=== PATIENT | female | born 1965 | race Caucasian/White ===

== ENCOUNTER 2016-08-29 17:34 | Emergency (ER) | payer OTHER ==
--- NOTE | 2016-08-29 22:35 | DIAGNOSTIC IMAGING REPORT ---
PROCEDURE: CT HEAD WITHOUT CONTRAST INDICATION: MENTAL STATUS CHANGE TECHNIQUE: Axial CT images were acquired through the head. Coronal and sagittal reformations were created. COMPARISON: None. FINDINGS: No intracranial hemorrhage or extraaxial fluid collections. Ventricles are normal in size, shape and position. There is no mass, mass effect or midline shift. The crawford-white matter differentiation is normal. There is no edema. The calvarium is intact. Small left frontal soft tissue contusion. Maxillary sinuses are hypoplastic and there have been the inferior turbinate reductions and right maxillary antral windows. No fluid in the sinuses or mastoids. IMPRESSION: 1. No CT evidence of acute intracranial process. 2. Small left frontal contusion without underlying fracture. 3. Findings discussed with Jennifer Johnson at [address] scans at this facility use dose modulation, iterative reconstruction, and/or weight-based dosing when appropriate to reduce radiation dose to as low as reasonably achievable.
--- NOTE | 2016-08-30 09:54 | ED NURSING NOTES ---
Clinical Report - [facility] [place] [address] 08/29/2016 17:35 Patient: MARIETTA MARKHAM TRIAGE Triage time 17:40. Acuity: LEVEL 2. Chief Complaint: DRUG OVERDOSE. BUDDY COMA SCORE: [place] Coma Scale: 10- eyes open to pain (2); best verbal response- inappropriate speech (3); best motor response- localizes to pain (5). --18:01 Shaq Ruelas R.N. 17:44 08/29/16. HR: 81. RR: 14. O2 saturation: 93%. --18:01 Shaq Ruelas R.N. Weight: 54.4 kg estimated. Height/Length: 63 inches Estimated. BMI: 21.2. --17:44 Shaq Ruelas R.N. Medications Unknown. --17:57 Shaq Ruelas R.N. Allergies None. Shellfish-derived Products. Tramadol. --17:57 Shaq Ruelas R.N. History Historian: EMS. Primary physician (unknown). ( pt responds "nothing" to all triage questions. EMS called by elderly mother for patient's anxiety. Seen by EMS previous for meth use. Pt unable to comprehend triage questions. Pt goes from lethargic and not responding to verbal/painful stimuli, to crawling off the bed and yelling.). This occurred just prior to arrival. Treatment MEDICAL RECEPTIONIST BILLER: (narcan x1 from EMS). --18:01 Shaq Ruelas R.N. PROBLEMS: Contusion. Fall. Arthritis. Dental Pain. Dental Caries. Depression. Constipation. Anxiety Reaction. Hypokalemia. Gastritis. Pancreatitis. Abdominal Pain. Gastroesophageal Reflux. Gastroesophageal Reflux Disease. Immunizations. LNMP - Last Normal Menstrual Period. --17:59 Shaq Ruelas R.N. ADDITIONAL SURGERIES: Cholecystectomy. . Tonsillectomy. --17:59 Shaq Ruelas R.N. Interventions ID band on patient. To treatment room. --18:01 Shaq Ruelas R.N. PHYSICAL ASSESSMENT Ambulatory to room. GENERAL / NEURO / PSYCH: Patient's mood/affect appears abnormal. Gag reflex present. She appears to have altered thought processes. RESPIRATORY: Respirations not labored. CVS: Capillary refill less than 2 seconds. GI / : Abdomen soft and nontender. SKIN: Skin intact. Skin is warm and dry. Skin color is within normal limits. --18:47 Marivel Valdez R.N. 07:41 08/30/16. GENERAL / NEURO / PSYCH: Buddy Coma Scale: 14- eyes open spontaneously (4); best verbal response- disoriented (4); best motor response- obeys commands (6). The patient is disoriented to situation. Altered mental status: confused. Abnormal verbal response. ( Pt awakens easily, pt was sleeping, pt confused to situation, does not know where she is at. Pt is sleeping, not impulsive at this time. Alert and oriented x2, will monitor close. DMHP at bedside.). --07:41 Yair Vick R.N. NURSING PROGRESS NOTES Head of bed elevated. Two patient identifiers checked. Call light placed in reach. Side rails up x 2. Bed placed in lowest position. Brakes of bed on. Patient ready for evaluation. --18:47 Marivel Valdez R.N. 18:37 08/29/2016 Site #1 started via IV forearm with an 22g angiocath, with aseptic technique and good blood return; one attempt. Blood drawn: rainbow set. Labeled in the presence of the patient and sent to the lab. Saline lock flushed with 10 mL saline. --19:02 Marivel Valdez R.N. 18:38 08/29/2016 Started bag #1 1000 mL IV Fluids IV NS (Saline); at 1000 mL/hr over 1 hour(s) via site #1 via IV pump. Allergies verified and confirmed 5 rights. IV patency established. IV site checked: no pain, redness, or swelling. IV flushed thoroughly pre- and post-medication administration. --19:03 Marivel Valdez R.N. 19:13 08/29/2016 Started 20 meq of KCL (Potassium Chloride) IVPB in bag #1 100 mL; at 50 mL/hr over 2 hour(s) via site #1 via IV pump. Allergies verified and confirmed 5 rights. IV patency established. IV site checked: no pain, redness, or swelling. IV flushed thoroughly pre- and post-medication administration. --19:13 Marivel Valdez R.N. Critical value relayed to ED by alfredito. Critical value received by marivel. K: 2.9. Critical value read back. Verified lab result and patient ID. PA notifed of critical value. Orders were received. --19:15 Marivel Valdez R.N. 19:26 08/29/16. BP: 106/60. HR: 57. RR: 16. O2 saturation: 99% on room air. --19:27 Marivel Valdez R.N. <<STRICKEN ENTRY-- 19:38 08/29/2016 IV Fluids IV NS Bag Change: bag #1 infused. Total amount infused: 1000 at 1000 mL/hr via IV pump. Confirmed 5 rights. IV patency established. IV site checked: no pain, redness, or swelling. IV flushed thoroughly. --20:47 Marivel Valdez R.N. --END STRIKE>> Correction. --20:48 Marivel Valdez R.N. 19:38 08/29/2016 IV Fluids IV NS Bag Change: bag #1 infused. Total amount infused: 1000. STARTED bag #2 (1000 mL) at 1000 mL/hr via IV pump. Confirmed 5 rights. IV patency established. IV site checked: no pain, redness, or swelling. IV flushed thoroughly. --20:48 Marivel Valdez R.N. 18:30. In/out catheterization. Reason for indwelling catheter: patient's decreased level of consciousness. During procedure hand hygiene observed and sterile equipment and aseptic technique used. She tolerated procedure well (fem cath). --20:50 Marivel Valdez R.N. 20:00 08/29/16. BP: 119/80. HR: 94. RR: 22. O2 saturation: 98% on room air. 19:26 08/29/16. BP: 106/60. HR: 57. RR: 16. O2 saturation: 99% on room air. --20:50 Marivel Valdez R.N. ( Patient's arms repositioned, VS done. Responds to voice. continues to be trying to pull at the lines. Continues to be impulsive and leaning forward.). --21:02 Marivel Valdez R.N. ( 1847, late entry, patient impulsive and trying to pull away. Refuses to follow simple commands. Moans, and tries to lurch to side and the end of the bed. Unable to answer questions re meds, hx, surgs etc). --21:05 Marivel Valdez R.N. ( Patient incontinent of urine, of a large amount of urine. Linen changed and patient repositioned again.). --21:12 Marivel Valdez R.N. 21:23 08/29/2016 IV Fluids IV NS Discontinued: bag #2 infused. Total amount infused: 1000 mL. IV patency established. IV site checked: no pain, redness, or swelling. IV flushed thoroughly. --21:23 Marivel Valdez R.N. 21:23 08/29/2016 KCL IVPB Discontinued: bag #1 infused. Total amount infused: 100 mL. IV patency established. IV site checked: no pain, redness, or swelling. IV flushed thoroughly. --21:23 Marivel Valdez R.N. 21:54 08/29/2016 HALDOL (Haloperidol Lactate) IVP 3 mg given over 1 minute(s) via site #1. Allergies verified, confirmed 5 rights and sedative warning given to the patient. IV patency established. IV site checked: no pain, redness, or swelling. IV flushed thoroughly pre- and post-medication administration. IVP given by RN. --21:59 Marivel Valdez R.N. ( Transported to CT for scan of head, via bed. Patient assisted to the bed, attempting to follow commands.). --22:01 Marivel Valdez R.N. Patient returned from CT by stretcher with nurse and tech. ([id number]). --22:20 Marivel Valdez R.N. 22:00 08/29/16. BP: 104/47. HR: 65. RR: 20. O2 saturation: 97% on room air. Additional comments: Patient rouses to voice, yet unable to follow commands. 20:53 08/29/16. BP: 119/48. HR: 83. RR: 18. O2 saturation: 96% on room air. --22:23 Marivel Valdez R.N. ( Report received from Marivel CHOWDHURY. Pt was placed in a gown and given a warm blanket. Pt had urinated on her clothes. Restraints are on both wrist to keep the pt from falling out of bed. Pt is very impulsive, but is not violent. Pt will try and pull IV out and get out of bed. Pt is confused and response to verbal.). --22:29 Hieu Singer R.N. 22:46 08/29/2016 Narcan (Naloxone HCl) IVP 0.4 mg given over 1 minute(s) via site #1. Allergies verified and confirmed 5 rights. IV patency established. IV site checked: no pain, redness, or swelling. IV flushed thoroughly pre- and post-medication administration. IVP given by RN. --22:46 Hieu Singer R.N. 22:58 08/29/16. BP: 115/79. HR: 93. RR: 18. O2 saturation: 100%. Pain level now 0/10. --23:00 Hieu Singer R.N. gambling monitor, pulse oximeter and NIBP monitor placed on patient. ( Pt is awake after the narcan was given. Pt is laying in bed and moaning. Pt refuses to answer questions. Pt is in wrist restraints to keep her from falling out of bed.). --23:00 Hieu Singer R.N. Patient ID band checked for patient name and birthdate. Blood samples drawn from the left antecubital space by lab per protocol ; labeled in presence of the patient and sent to lab: rainbow set. --23:43 Nilay Moody R.N. ( MD HAIRSTON and RN went to assess the pt. Pt was on the monitor and continues to moan and not responding to commands.). --23:44 Hieu Singer R.N. ( Pt is moaning in bed and will not answer questions. Pt is in wrist restraints and is constantly moving around in bed. Pt was given pants, because she kicks off the warm blankets. Restraints are loose around the wrist with no signs of injury or too tight. Radial pulse is strong in both hands. Skin is warm on both hands. Cap refill is under 3 seconds.). --00:35 Hieu Singer R.N. ( Pt was asked if she was in pain, she stated she was not in pain then continued to moan and did not answer anymore questions. Pt is still on the monitor and wrist restraints. Restraints are secure and not too tight. Hands are warm to the touch with good cap refill.). --01:22 Hieu Singer R.N. 01:21 08/30/16. BP: 141/67. HR: 101. RR: 22. O2 saturation: 100%. Pain level now 0/10. --01:22 Hieu Singer R.N. ( [facility] was called for a DMHP and one will be sent for an evaluation. Pt is still laying in bed and moving constantly.). --02:00 Hieu Singer R.N. ( Pt was sat up in bed and her restraints were repositioned and checked. Pt stated she was not in pain, however she continues to moan and answer no other questions. Pt was given another warm blanket.). --02:05 Hieu Singer R.N. 02:07 08/30/16. BP: 133/72. HR: 104. RR: 18. O2 saturation: 98%. Pain level now 0/10. --02:07 Hieu Singer R.N. Point of care testing: performed by tech. Glucose: 96. Result shown to the RN. ( Pt blood sugar was checked and the restraints were checked. Pt was informed she needs to be evaluated by mental health.). --02:26 Hieu Singer R.N. 02:57 08/30/16. BP: 135/75. HR: 75. RR: 13. O2 saturation: 97%. Pain level now 0/10. --02:58 Hieu Singer R.N. ( Restraints have been removed and the pt is resting in bed with her eyes closed. Pt is no longer moaning and is snoring in bed.). --02:58 Hieu Singer R.N. ( Pt is resting in bed with eyes closed and snoring. Pt is on the monitor and the restraints are still off the pt.). --04:03 Hieu Singer R.N. 04:01 08/30/16. BP: 117/65. HR: 69. RR: 14. O2 saturation: 93%. Pain level now 0/10. --04:03 Hieu Singer R.N. 05:00 08/30/16. BP: 132/102. HR: 100. RR: 17. O2 saturation: 97%. Pain level now 0/10. --05:01 Hieu Singer R.N. ( Pt was snoring with her eyes closed and spo2 was in the upper 80's. Pt was woken up and the spo2 was increased to 96% on room air. Pt was placed on 2 liters nc and spo2 was 97%. Pt kept repeating "Ok" over and over.). --05:01 Hieu Singer R.N. ( Pt is now resting in bed with her eyes closed.). --05:01 Hieu Singer R.N. Oxygen administered by nasal cannula at 2 liters. --05:02 Hieu Singer R.N. ( pt is now more responsive, but is still confused. She is alert and oriented to self only.). --05:16 Hieu Singer R.N. ( DMHP is here. The pt is now more awake and responding to questions, but is still confused. Tashia CHOWDHURY has given the patient juice and offered a snack. Pt has been ordered breakfast. Pt is still moaning and continues to rock back and forth in bed.). --05:43 Hieu Singer R.N. ( DMHP is in the room talking to the pt.). --06:14 Hieu Singer R.N. ( Pt walked out of room 16 and was immediately taken back to the room. Pt had voided in the bed. Bedding and paper scrub pants and shirt was replaced on the pt. Pt was placed back in bed and was cooperative. Pt is still confused. Alert and oriented to self, but is able to follow commands.). BUDDY COMA SCORE: [place] Coma Scale: 14- eyes open spontaneously (4); best verbal response- disoriented (4); best motor response- obeys commands (6). --06:52 Hieu Singer R.N. 07:05 08/30/2016 Benadryl (DiphenhydrAMINE HCl) IVP 50 mg given over 2 minute(s) via site #1. Allergies verified, confirmed 5 rights and sedative warning given to the patient. IV patency established. IV site checked: no pain, redness, or swelling. IV flushed thoroughly pre- and post-medication administration. IVP given by RN. --07:05 Tashia Mendoza 07:09 08/30/16. Care transferred and report received. --07:09 Yair Vick R.N. 07:38 08/30/16. BP: 115/72. HR: 80. RR: 14. O2 saturation: 100%. Temp: 98.1 F (oral). Pain level now: 010. --07:39 Yair Vick R.N. 07:39 08/30/16. --07:39 Yair Vick R.N. 08:38 08/30/16. Patient informed about reason for wait and about plan of care. Patient waiting for admit bed. --08:38 Yair Vick R.N. 08:46 08/30/16. ( Since caring for patient ([id number]), pt has been in room 16, door open, pt is not restrained, camera for watching patient is on, pt is redirect able.). --08:46 Yair Vick R.N. 08:48 08/30/16. ( Pt is stating she is anxious, does not know why. Provided reassurance to patient. Pt denies being hungry.). --08:48 Yair Vick R.N. 09:30 08/30/16. ( Pt eating breakfast, pt states she is feeling anxious. Will continue to monitor. Trying to find psych bed for patient.). --09:30 Yair Vick R.N. 09:34 08/30/16. ( at bedside talking with patient to see if patient is medically cleared). --09:34 Yair Vick R.N. 09:39 08/30/2016 Potassium Chloride (Potassium Chloride ER) PO 20 meq given. Allergies verified and confirmed 5 rights. --09:39 Yair Vick R.N. 09:40 08/30/16. ( Pt denies suicidal ideation, homicidal ideation, pt states she is anxious, MD at bedside and patient will likely be discharged). --09:40 Yair Vick R.N. 09:42 08/30/16. GENERAL / NEURO / PSYCH: The patient reports anxiety. Alert. Oriented X 4. RESPIRATORY: No respiratory distress. GI / : No vomiting noted. SKIN: Skin is warm and dry. Skin color within normal limits. --09:42 Yair Vick R.N. DISPOSITION / DISCHARGE 09:43 08/30/2016 Site #1 removed upon discharge. Catheter intact. --09:53 Yair Vick R.N. Condition at departure: improved. The goals identified in the patient's plan of care were met. No learning barriers present. Discharge instructions provided and reviewed with the patient. Reviewed warnings. Reviewed medication(s). Treatments reviewed. Patient verbalized understanding. Written instructions provided in Irish. The patient was discharged by the physician. She was discharged home. She left the Emergency Department ambulatory and via taxi. ( Pt to be discharged to [facility] home). FALL RISK ASSESSMENT: Fall risk assessment completed. No fall risk identified. --09:54 Yair Vick R.N. 09:52 08/30/16. BP: 117/72. HR: 77. RR: 14. O2 saturation: 100% on room air. Temp: 98 F (oral). Pain level now: 0/10. --09:54 Yair Vick R.N. 10:05 08/30/16. ( Pt sent to waiting room, cab ETA is 15 minutes, pt is calm, dressed in paper scrubs, pt given slippers, pt understands where she is going and address.). --10:05 Yair Vick R.N. 10:05 08/30/16. Departure time: 10:05. --10:05 Yair Vick R.N. Locked/Released at 08/30/2016 10:06 by Yair Vick R.N.
--- NOTE | 2016-08-30 09:54 | ED CLINICAL REPORT ---
Clinical Report - Physicians/Mid Levels [facility] [address] [place] [address] 08/29/2016 17:35 Patient: MARIETTA MARKHAM Time Seen: 18:20 Aug 29 2016. Arrived- By ambulance. Historian- EMS personnel. History limited by altered mental status, poor cooperation and psychosis. Physical Exam limited by poor cooperation and psychosis. HISTORY OF PRESENT ILLNESS Chief Complaint: running around room at home "panic attack". This started today and is still present. It was abrupt in onset. (Change in behavior passing out at home. Given narcan intranasally , no improvement of sx. Reports meth use pt responds "nothing" to all triage questions. EMS called by elderly mother for patient's anxiety. Seen by EMS previous for meth use. Pt unable to comprehend triage questions. Pt goes from lethargic and not responding to verbal/painful stimuli, to crawling off the bed and yelling). Similar symptoms previously: REVIEW OF SYSTEMS Unobtainable due to patient's uncooperativeness. No nausea, diarrhea or blackouts. PAST HISTORY Problems: Contusion. Fall. Arthritis. Dental Pain. Dental Caries. Depression. Constipation. Anxiety Reaction. Hypokalemia. Gastritis. Pancreatitis. Abdominal Pain. Gastroesophageal Reflux. Gastroesophageal Reflux Disease. Immunizations. LNMP - Last Normal Menstrual Period. Additional Surgeries: Cholecystectomy. . Tonsillectomy. Medications: Unknown. Allergies: None. Shellfish-derived Products. Tramadol. SOCIAL HISTORY Smoker- current status unknown. Patient refuses to answer tobacco use questions. FAMILY HISTORY Unable to obtain family medical history (uncooperative). ADDITIONAL NOTES The nursing notes have been reviewed. PHYSICAL EXAM Vital Signs: 08/29/2016 17:44 HR: 81. RR: 14. O2 saturation: 93%. Appearance: Alert. Patient in mild distress. ENT: Nose normal. Pharynx normal. Neck: Normal inspection. No carotid bruit or lymphadenopathy. CVS: Normal heart rate and rhythm. Heart sounds normal. Respiratory: No respiratory distress. Breath sounds normal. No accessory muscle use or decreased air movement. Abdomen: No visible injury. No abdominal tenderness. Skin: (swelling and ecchymosis to front left head scalp). Neuro: Altered mental status. Eyes open spontaneously. Best verbal response: inappropriate speech. Best motor response: withdrawal. LABS, X-RAYS, AND EKG CT Head: (IMPRESSION: 1. No CT evidence of acute intracranial process. 2. Small left frontal contusion without underlying fracture. 3. Findings discussed with Jennifer Johnson at [address] scans at this facility use dose modulation, iterative reconstruction, and/or weight-based dosing when appropriate to reduce radiation dose to as low as reasonably achievable. Electronically Final signed by:Blanche Walters MD 08/29/2016 10:35:26 PM). Laboratory Tests: TSH: (SAURAV: 08/30/2016 01:50) ( [facility] 08/30/2016 03:17) Final results Test Result Flag Units (Reference) THYROID STIMULATING HORMONE 0.931 uIU/mL (0.34-3.74) BMP: (SAURAV: 08/30/2016 00:01) ( WvgRcvd 08/30/2016 00:43) Final results Test Result Flag Units (Reference) GLUCOSE 106 mg/dL (70-110) BUN 20 # H mg/dL (7-18) mg/dL CREATININE 0.7 mg/dL (0.6-1.3) Estimated GFR >60 mL/min Estimated GFR- >60 mL/min Note: Persistent reduction over 3 months in eGFR<60 mL/min/1.73 m2 defines CKD. Patients with eGFR values>=60 mL/min/1.73 m2 may also have CKD if evidence ofpersistent proteinuria. Additional information may be foundat www.kidney.org. SODIUM 142 mmol/L (136-145) POTASSIUM 3.9 # mmol/L (3.5-5.1) CHLORIDE 105 mmol/L (98-107) CARBON DIOXIDE 20 L mmol/L (21-32) CALCIUM 8.5 mg/dL (8.5-10.1) UA-Culture if indicated: (SAURAV: 08/29/2016 18:20) ( [facility] 08/29/2016 18:44) Final results Test Result Flag Units (Reference) URINE COLOR YELLOW URINE APPEARANCE SL CLOUDY URINE GLUCOSE NEGATIVE (NEGATIVE) URINE BILIRUBIN NEGATIVE (NEGATIVE) URINE KETONE 1+ (NEGATIVE) URINE SPECIFIC GRAVITY 1.015 (1.010-1.030) URINE PH 5.5 (5.0-8.0) URINE PROTEIN NEGATIVE (NEGATIVE) URINE UROBILINOGEN 0.2 EU/dL (0.2-1.0) URINE NITRITE NEGATIVE (NEGATIVE) URINE BLOOD TRACE-INTACT (NEGATIVE) URINE LEUK ESTERASE NEGATIVE (NEGATIVE) URINE RBC 1-3 rbc/hpf (0-1) URINE WBC 1-3 wbc/hpf (0-1) URINE EPITHELIAL CELLS 5-10 EPI/hpf (0-5) URINE BACTERIA FEW (1+) (NONE SEEN) URINE COMMENT CULT NOT INDICATED 1+ AMORPHOUSURINE CULTURES ARE SET-UP BASED ON THE FOLLOWING CRITERIA:POSITIVE NITRITEPOSITIVE LEUKOCYTE ESTERASEGREATER THAN 10 WHITE BLOOD CELLSMODERATE (2+) OR GREATER BACTERIA CBC w Diff: (SAURAV: 08/29/2016 18:20) ( MsgRcvd 08/29/2016 18:31) Final results Test Result Flag Units (Reference) WHITE BLOOD COUNT 13.8 H K/uL (4.5-11.5) RED BLOOD COUNT 3.24 L M/uL (4.00-5.20) HEMOGLOBIN 10.4 L gm/dL (12.0-16.0) HEMATOCRIT 31.3 L % (36.0-46.0) MEAN CELL VOLUME 97 fL (80-100) MEAN CORPUSCULAR HGB 32 pg (26-34) MEAN CORPUSCULAR HGB CONC 33 g/dL (31-37) RED CELL DISTRIBUTION WIDTH 13.5 % (11.6-14.8) PLATELET COUNT 252 K/uL (150-400) NEUTROPHIL % 82.0 H % (50-75) LYMPH % 12.5 L % (25-40) MONO % 5.0 % (3-14) EOSINOPHIL % 0.2 % (0-4) BASOPHIL % 0.3 % (0-2) Lipase: (SAURAV: 08/29/2016 23:40) ( MsgRcvd 08/30/2016 00:14) Final results Test Result Flag Units (Reference) LIPASE 34 L U/L (73-393) Ammonia Level: (SAURAV: 08/29/2016 23:40) ( [facility] 08/30/2016 00:12) Final results Test Result Flag Units (Reference) AMMONIA < 10 L umol/L (11-32) Acetaminophen Level: (SAURAV: 08/29/2016 18:20) ( [facility] 08/29/2016 19:12) Final results Test Result Flag Units (Reference) ACETAMINOPHEN < 2.0 L ug/mL (10-30) ETHYL ALCOHOL < 3.0 L mg/dL (3-10) Urine Drug Screen: (SAURAV: 08/29/2016 18:20) ( [facility] 08/29/2016 18:54) Final results Test Result Flag Units (Reference) AMPHETAMINE/METHAMPHETAMINE NEGATIVE (NEGATIVE) BARBITURATE NEGATIVE (NEGATIVE) BENZODIAZEPINE NEGATIVE (NEGATIVE) CANNABINOID NEGATIVE (NEGATIVE) COCAINE NEGATIVE (NEGATIVE) ECSTASY NEGATIVE (NEGATIVE) METHADONE NEGATIVE (NEGATIVE) OPIATE POSITIVE H (NEGATIVE) The urine drug screen is a qualitative screening test fordrug overdose and abuse. All screen results should beconsidered as presumptive.Drugs screened for are as follows:BenzodiazepinesCocaineAmphetamines/MetamphetaminesTHC (Tetrahydrocannabinol)OpiatesBarbituratesEcstasyMethadonePositive results are unconfirmed. For confirmation, notifythe lab for the specimen to be sent to the reference lab.All confirmations must be performed by a differentmethodology.The ingestion of natural herbal and plant productscontaining Ephedra/Ephedra metabolites can produce in urineone or more substances capable of cross reacting withamphetamine/methamphetamine immunoassays. These testsprovide a preliminary result only. A more specificalternative chemical method must be used to obtain aconfirmed analytical result. CMP: (SAURAV: 08/29/2016 18:20) ( [facility] 08/29/2016 19:02) Final results Test Result Flag Units (Reference) GLUCOSE 108 mg/dL (70-110) BUN 30 H mg/dL (7-18) CREATININE 0.9 mg/dL (0.6-1.3) Estimated GFR >60 mL/min Estimated GFR- >60 mL/min Note: Persistent reduction over 3 months in eGFR<60 mL/min/1.73 m2 defines CKD. Patients with eGFR values>=60 mL/min/1.73 m2 may also have CKD if evidence ofpersistent proteinuria. Additional information may be foundat www.kidney.org. SODIUM 135 L mmol/L (136-145) POTASSIUM 2.9 *L mmol/L (3.5-5.1) CRITICAL RESULTS CALLEDCalled to ALEXIA Vuong R.N. 08/29/16 1900Were 2 patient identifiers used? YWas the result read back? Y CHLORIDE 100 mmol/L (98-107) CARBON DIOXIDE 24 mmol/L (21-32) CALCIUM 9.2 mg/dL (8.5-10.1) TOTAL PROTEIN 6.9 g/dL (6.4-8.2) ALBUMIN 4.2 g/dL (3.3-5.0) BILIRUBIN, TOTAL 0.8 mg/dL (0.0-1.0) ALKALINE PHOSPHATASE 110 U/L (46-116) AST (SGOT) 36 U/L (15-37) ALT (SGPT) 22 U/L (12-78) MAGNESIUM 1.9 mg/dL (1.8-2.4) . PROGRESS AND PROCEDURES Course of Care: Patient here in the ER unable to follow commands, she was asleep, lethargic upon arrival, RN completed sternal rub at which point in time patient woke up and arose in bed. In the field she was given Narcan intranasally once, and was felt to have some improvement, however then fell asleep and not following commands again when she would wake up. Her mother was concerned, as she believed this was a panic attack, she has had such in the past thus called 911 . Patient has been largely nonverbal, mumbling at times here in the ER. 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 Patient is unable to see anything at this time. She is moving around frantically her extremities, and was placed in restraints due to safety concerns, she was attempting to get out of bed. Head CT completed which does not show any acute bleeding. Labs here and they are her been unremarkable. Urinary drug screen was positive for opiates. She was given Haldol IV 3 mg prior to her CT scan, and after such negative imaging, she was given Narcan 0.4 mg IV, at this time the nurse reports she awoke somewhat from her state arose, stated no, and has since been in her drowsy state, mumbling from time to time, rather incoherent, awake with eyes open, and soft restraints to her bilateral arms, moving her lower extremities frantically. No family has attended to her. Pt appears under influence of substance. Course of care transferred to Dr. Zhang at end of shift. 09:47 08/30/16. I assumed care of the patient at change of shift. Dr. Zhang reviewed the patient's history and examination findings and results of her studies with me. I subsequently went in and took the patient's history and examined her. She is alert and oriented and lucid. She says that the events yesterday were due to a "panic attack." She says if she does not feel anxious now. She says that she did take Vicodin yesterday for pain in her gums as she is edentulous. She says that this was prescribed for pain. She denies any history of substance abuse. She denies suicidal or homicidal ideation. She says that she feels well and like to go home. With the exception of her left-sided forehead contusion her physical examination was otherwise unremarkable. - MW. 08/29/2016 22:58 BP: 115/79. HR: 93. RR: 18. O2 saturation: 100%. 08/29/2016 22:00 BP: 104/47. HR: 65. RR: 20. O2 saturation: 97%. 08/29/2016 20:53 BP: 119/48. HR: 83. RR: 18. O2 saturation: 96%. Discussed case with hospitalist, (call returned 013 Dr. Garces. Due to the likely psychiatric nature of this he is unable to admit due to the lack of psychiatric services here.). Patient/family counseled. Old medical records reviewed. Disposition: Discharged. Condition: stable. CLINICAL IMPRESSION Acute transient drug induced (opiates) psychosis. Substance abuse problems: abuse of opiates. Hypokalemia INSTRUCTIONS (Discontinue the use of Vicodin as discussed.). Warnings: Further evaluation is necessary. GENERAL WARNINGS: Return or contact your physician immediately if your condition worsens or changes unexpectedly, if not improving as expected, or if other problems arise. Understanding of the discharge instructions verbalized by patient. Follow-up with: Nela Hernandez, Advanced Registered Nurse Practitioner, , [facility], [address] [place] [address] Follow up in four days. Call for the next available appointment. Follow-up with: [facility], Certified Mental Health Director Of Patient Financial Services, , , , , Follow up in four days. Call for an appointment. (Electronically signed by Ld Mcclelland MD 08/30/2016 10:09)
--- NOTE | 2016-08-30 09:54 | ED ORDER SUMMARY ---
..... Patient: MARIETTA MARKHAM OrderSheet [facility] VisitID: [id number] [place] [address] 51y, F Registration Date/Time: 08/29/2016 ORDER SHEET Weight: 54.4 kg (estimated) Allergies: None, Shellfish-derived Products, Tramadol GENERAL ORDERS: CBC w Diff Urgent (17:52 08/29/2016 EKoroleva P.A.-C) (Ack 17:53 TBergley) (18:41 TBergley) CMP Urgent (17:52 08/29/2016 EKoroleva P.A.-C) (Ack 17:53 TBergley) (18:41 TBergley) UA-Culture if indicated Urgent (17:52 08/29/2016 EKoroleva P.A.-C) (Ack 17:53 TBergley) (18:41 TBergley) Urine Drug Screen Urgent (17:52 08/29/2016 EKoroleva P.A.-C) (Ack 17:53 TBergley) (18:41 TBergley) Ethyl Alcohol Urgent (17:52 08/29/2016 EKoroleva P.A.-C) (Ack 17:53 TBergley) (18:41 TBergley) Acetaminophen Level Urgent (17:52 08/29/2016 EKoroleva P.A.-C) (Ack 17:53 TBergley) (18:41 TBergley) CT Head wo Cont Urgent (21:47 08/29/2016 EKoroleva P.A.-C) (Ack 21:50 SRedmond) (22:08 Elliott) Optical Model Maker And Tester (Continuous) (22:40 08/29/2016 EKoroleva P.A.-C) (22:48 TLewis R.N.) Ammonia Level Urgent (23:16 08/29/2016 EKoroleva P.A.-C) (Ack 23:30 SRedmond) (23:42 JDeElena R.N.) Lipase Urgent (23:20 08/29/2016 EKoroleva P.A.-C) (Ack 23:30 SRedmond) (23:42 JDeElena R.N.) BMP Urgent (00:24 08/30/2016 Huseyin Marte) (Ack 0:28 SRedmond) (2:42 AMcQuoid ER Tech1) TSH Urgent (02:40 08/30/2016 AMcQuoid ER Tech1 verbal order read back to Huseyin Marte) (Ack 2:41 SRedmond) (2:42 AMcQuoid ER Tech1) MEDICATION ORDERS: Potassium Chloride PO 20 meq (NOW) (09:34 08/30/2016 JBoardley R.N. verbal order read back to Huseyin Marte) (Ack 9:34 JBoardley R.N.) (9:39 JBoardley R.N.) IV FLUIDS: IV NS : initial bolus 1000 mL (1000 mL/hr), then 1000 mL/hr for X1 (NOW); Abhilash (18:08 08/29/2016 EKoroleva P.A.-C) (19:03 SRoberts R.N.) KCl IV 10meq (Run no faster than 10 units/hr) (19:01 08/29/2016 EKoroleva P.A.-C) (Cancelled: Other19:05 EKoroleva P.A.-C) (Cancelled: Physician Order19:12 SRoberts R.N.) KCl IV 20 meq/100mL (Run no faster than 10 units/hr) (19:05 08/29/2016 EKoroleva P.A.-C) (19:13 SRoberts R.N.) Haldol IV 3 mg (HIGH ALERT MEDICATION, NOW) (21:48 08/29/2016 EKoroleva P.A.-C) (21:59 SRoberts R.N.) Narcan IV 0.4 mg (HIGH ALERT MEDICATION, NOW) (22:40 08/29/2016 EKoroleva P.A.-C) (22:46 TLewis R.N.) Benadryl IV 50 mg (NOW) (07:02 08/30/2016 Huseyin Marte) (7:05 HSoule) ORDER SHEET NOTES: [Electronically signed by Yair Vick R.N. (10:08/30/2016)] [Electronically signed by dL Mcclelland MD (10:08/30/2016)] [Electronically locked/signed by Yair Vick R.N. (10:08/30/2016)]
--- NOTE | 2016-08-30 09:54 | ED ORDER SUMMARY ---
..... Patient: MARIETTA MARKHAM OrderSheet [facility] VisitID: [id number] [place] [address] 51y, F Registration Date/Time: 08/29/2016 ORDER SHEET Weight: 54.4 kg (estimated) Allergies: None, Shellfish-derived Products, Tramadol GENERAL ORDERS: CBC w Diff Urgent (17:52 08/29/2016 EKoroleva P.A.-C) (Ack 17:53 TBergley) (18:41 TBergley) CMP Urgent (17:52 08/29/2016 EKoroleva P.A.-C) (Ack 17:53 TBergley) (18:41 TBergley) UA-Culture if indicated Urgent (17:52 08/29/2016 EKoroleva P.A.-C) (Ack 17:53 TBergley) (18:41 TBergley) Urine Drug Screen Urgent (17:52 08/29/2016 EKoroleva P.A.-C) (Ack 17:53 TBergley) (18:41 TBergley) Ethyl Alcohol Urgent (17:52 08/29/2016 EKoroleva P.A.-C) (Ack 17:53 TBergley) (18:41 TBergley) Acetaminophen Level Urgent (17:52 08/29/2016 EKoroleva P.A.-C) (Ack 17:53 TBergley) (18:41 TBergley) CT Head wo Cont Urgent (21:47 08/29/2016 EKoroleva P.A.-C) (Ack 21:50 SRedmond) (22:08 Elliott) Residential Leasing Agent (Continuous) (22:40 08/29/2016 EKoroleva P.A.-C) (22:48 TLewis R.N.) Ammonia Level Urgent (23:16 08/29/2016 EKoroleva P.A.-C) (Ack 23:30 SRedmond) (23:42 JDeElena R.N.) Lipase Urgent (23:20 08/29/2016 EKoroleva P.A.-C) (Ack 23:30 SRedmond) (23:42 JDeElena R.N.) BMP Urgent (00:24 08/30/2016 Huseyin Marte) (Ack 0:28 SRedmond) (2:42 AMcQuoid ER Tech1) TSH Urgent (02:40 08/30/2016 AMcQuoid ER Tech1 verbal order read back to Huseyin Marte) (Ack 2:41 SRedmond) (2:42 AMcQuoid ER Tech1) MEDICATION ORDERS: Potassium Chloride PO 20 meq (NOW) (09:34 08/30/2016 JBoardley R.N. verbal order read back to Huseyin Marte) (Ack 9:34 JBoardley R.N.) (9:39 JBoardley R.N.) IV FLUIDS: IV NS : initial bolus 1000 mL (1000 mL/hr), then 1000 mL/hr for X1 (NOW); Abhilash (18:08 08/29/2016 EKoroleva P.A.-C) (19:03 SRoberts R.N.) KCl IV 10meq (Run no faster than 10 units/hr) (19:01 08/29/2016 EKoroleva P.A.-C) (Cancelled: Other19:05 EKoroleva P.A.-C) (Cancelled: Physician Order19:12 SRoberts R.N.) KCl IV 20 meq/100mL (Run no faster than 10 units/hr) (19:05 08/29/2016 EKoroleva P.A.-C) (19:13 SRoberts R.N.) Haldol IV 3 mg (HIGH ALERT MEDICATION, NOW) (21:48 08/29/2016 EKoroleva P.A.-C) (21:59 SRoberts R.N.) Narcan IV 0.4 mg (HIGH ALERT MEDICATION, NOW) (22:40 08/29/2016 EKoroleva P.A.-C) (22:46 TLewis R.N.) Benadryl IV 50 mg (NOW) (07:02 08/30/2016 Huseyin Marte) (7:05 HSoule) ORDER SHEET NOTES: [Electronically signed by Yair Vick R.N. (10:08/30/2016)] [Electronically signed by Ld Mcclelland MD (10:08/30/2016)] [Electronically locked/signed by Yair Vick R.N. (10:08/30/2016)]
--- NOTE | 2016-08-30 09:54 | ED CLINICAL REPORT ---
Clinical Report - Physicians/Mid Levels [facility] [address] [place] [address] 08/29/2016 17:35 Patient: MARIETTA MARKHAM Time Seen: 18:20 Aug 29 2016. Arrived- By ambulance. Historian- EMS personnel. History limited by altered mental status, poor cooperation and psychosis. Physical Exam limited by poor cooperation and psychosis. HISTORY OF PRESENT ILLNESS Chief Complaint: running around room at home "panic attack". This started today and is still present. It was abrupt in onset. (Change in behavior passing out at home. Given narcan intranasally , no improvement of sx. Reports meth use pt responds "nothing" to all triage questions. EMS called by elderly mother for patient's anxiety. Seen by EMS previous for meth use. Pt unable to comprehend triage questions. Pt goes from lethargic and not responding to verbal/painful stimuli, to crawling off the bed and yelling). Similar symptoms previously: REVIEW OF SYSTEMS Unobtainable due to patient's uncooperativeness. No nausea, diarrhea or blackouts. PAST HISTORY Problems: Contusion. Fall. Arthritis. Dental Pain. Dental Caries. Depression. Constipation. Anxiety Reaction. Hypokalemia. Gastritis. Pancreatitis. Abdominal Pain. Gastroesophageal Reflux. Gastroesophageal Reflux Disease. Immunizations. LNMP - Last Normal Menstrual Period. Additional Surgeries: Cholecystectomy. . Tonsillectomy. Medications: Unknown. Allergies: None. Shellfish-derived Products. Tramadol. SOCIAL HISTORY Smoker- current status unknown. Patient refuses to answer tobacco use questions. FAMILY HISTORY Unable to obtain family medical history (uncooperative). ADDITIONAL NOTES The nursing notes have been reviewed. PHYSICAL EXAM Vital Signs: 08/29/2016 17:44 HR: 81. RR: 14. O2 saturation: 93%. Appearance: Alert. Patient in mild distress. ENT: Nose normal. Pharynx normal. Neck: Normal inspection. No carotid bruit or lymphadenopathy. CVS: Normal heart rate and rhythm. Heart sounds normal. Respiratory: No respiratory distress. Breath sounds normal. No accessory muscle use or decreased air movement. Abdomen: No visible injury. No abdominal tenderness. Skin: (swelling and ecchymosis to front left head scalp). Neuro: Altered mental status. Eyes open spontaneously. Best verbal response: inappropriate speech. Best motor response: withdrawal. LABS, X-RAYS, AND EKG CT Head: (IMPRESSION: 1. No CT evidence of acute intracranial process. 2. Small left frontal contusion without underlying fracture. 3. Findings discussed with Jennifer Johnson at [address] scans at this facility use dose modulation, iterative reconstruction, and/or weight-based dosing when appropriate to reduce radiation dose to as low as reasonably achievable. Electronically Final signed by:Blanche Walters MD 08/29/2016 10:35:26 PM). Laboratory Tests: TSH: (SAURAV: 08/30/2016 01:50) ( [facility] Final results Test Result Flag Units (Reference) THYROID STIMULATING HORMONE 0.931 uIU/mL (0.34-3.74) BMP: (SAURAV: 08/30/2016 00:01) ( Meg[facility]cvd 08/30/2016 00:43) Final results Test Result Flag Units (Reference) GLUCOSE 106 mg/dL (70-110) BUN 20 # H mg/dL (7-18) mg/dL CREATININE 0.7 mg/dL (0.6-1.3) Estimated GFR >60 mL/min Estimated GFR- >60 mL/min Note: Persistent reduction over 3 months in eGFR<60 mL/min/1.73 m2 defines CKD. Patients with eGFR values>=60 mL/min/1.73 m2 may also have CKD if evidence ofpersistent proteinuria. Additional information may be foundat www.kidney.org. SODIUM 142 mmol/L (136-145) POTASSIUM 3.9 # mmol/L (3.5-5.1) CHLORIDE 105 mmol/L (98-107) CARBON DIOXIDE 20 L mmol/L (21-32) CALCIUM 8.5 mg/dL (8.5-10.1) UA-Culture if indicated: (SAURAV: 08/29/2016 18:20) ( [facility] 18[facility]44) Final results Test Result Flag Units (Reference) URINE COLOR YELLOW URINE APPEARANCE SL CLOUDY URINE GLUCOSE NEGATIVE (NEGATIVE) URINE BILIRUBIN NEGATIVE (NEGATIVE) URINE KETONE 1+ (NEGATIVE) URINE SPECIFIC GRAVITY 1.015 (1.010-1.030) URINE PH 5.5 (5.0-8.0) URINE PROTEIN NEGATIVE (NEGATIVE) URINE UROBILINOGEN 0.2 EU/dL (0.2-1.0) URINE NITRITE NEGATIVE (NEGATIVE) URINE BLOOD TRACE-INTACT (NEGATIVE) URINE LEUK ESTERASE NEGATIVE (NEGATIVE) URINE RBC 1-3 rbc/hpf (0-1) URINE WBC 1-3 wbc/hpf (0-1) URINE EPITHELIAL CELLS 5-10 EPI/hpf (0-5) URINE BACTERIA FEW (1+) (NONE SEEN) URINE COMMENT CULT NOT INDICATED 1+ AMORPHOUSURINE CULTURES ARE SET-UP BASED ON THE FOLLOWING CRITERIA:POSITIVE NITRITEPOSITIVE LEUKOCYTE ESTERASEGREATER THAN 10 WHITE BLOOD CELLSMODERATE (2+) OR GREATER BACTERIA CBC w Diff: (SAURAV: 08/29/2016 18:20) ( MsgRcvd 08/29/2016 18:31) Final results Test Result Flag Units (Reference) WHITE BLOOD COUNT 13.8 H K/uL (4.5-11.5) RED BLOOD COUNT 3.24 L M/uL (4.00-5.20) HEMOGLOBIN 10.4 L gm/dL (12.0-16.0) HEMATOCRIT 31.3 L % (36.0-46.0) MEAN CELL VOLUME 97 fL (80-100) MEAN CORPUSCULAR HGB 32 pg (26-34) MEAN CORPUSCULAR HGB CONC 33 g/dL (31-37) RED CELL DISTRIBUTION WIDTH 13.5 % (11.6-14.8) PLATELET COUNT 252 K/uL (150-400) NEUTROPHIL % 82.0 H % (50-75) LYMPH % 12.5 L % (25-40) MONO % 5.0 % (3-14) EOSINOPHIL % 0.2 % (0-4) BASOPHIL % 0.3 % (0-2) Lipase: (SAURAV: 08/29/2016 23:40) ( MsgRcvd 08/30/2016 00:14) Final results Test Result Flag Units (Reference) LIPASE 34 L U/L (73-393) Ammonia Level: (SAURAV: 08/29/2016 23:40) ( [facility]12) Final results Test Result Flag Units (Reference) AMMONIA < 10 L umol/L (11-32) Acetaminophen Level: (SAURAV: 08/29/2016 18:20) ( [facility] 08[facility] 19:12) Final results Test Result Flag Units (Reference) ACETAMINOPHEN < 2.0 L ug/mL (10-30) ETHYL ALCOHOL < 3.0 L mg/dL (3-10) Urine Drug Screen: (SAURAV: 08/29/2016 18:20) ( [facility] 08/29/2016 18:54) Final results Test Result Flag Units (Reference) AMPHETAMINE/METHAMPHETAMINE NEGATIVE (NEGATIVE) BARBITURATE NEGATIVE (NEGATIVE) BENZODIAZEPINE NEGATIVE (NEGATIVE) CANNABINOID NEGATIVE (NEGATIVE) COCAINE NEGATIVE (NEGATIVE) ECSTASY NEGATIVE (NEGATIVE) METHADONE NEGATIVE (NEGATIVE) OPIATE POSITIVE H (NEGATIVE) The urine drug screen is a qualitative screening test fordrug overdose and abuse. All screen results should beconsidered as presumptive.Drugs screened for are as follows:BenzodiazepinesCocaineAmphetamines/MetamphetaminesTHC (Tetrahydrocannabinol)OpiatesBarbituratesEcstasyMethadonePositive results are unconfirmed. For confirmation, notifythe lab for the specimen to be sent to the reference lab.All confirmations must be performed by a differentmethodology.The ingestion of natural herbal and plant productscontaining Ephedra/Ephedra metabolites can produce in urineone or more substances capable of cross reacting withamphetamine/methamphetamine immunoassays. These testsprovide a preliminary result only. A more specificalternative chemical method must be used to obtain aconfirmed analytical result. CMP: (SAURAV: 08/29/2016 18:20) ( [facility] 08/29/2016 19:02) Final results Test Result Flag Units (Reference) GLUCOSE 108 mg/dL (70-110) BUN 30 H mg/dL (7-18) CREATININE 0.9 mg/dL (0.6-1.3) Estimated GFR >60 mL/min Estimated GFR- >60 mL/min Note: Persistent reduction over 3 months in eGFR<60 mL/min/1.73 m2 defines CKD. Patients with eGFR values>=60 mL/min/1.73 m2 may also have CKD if evidence ofpersistent proteinuria. Additional information may be foundat www.kidney.org. SODIUM 135 L mmol/L (136-145) POTASSIUM 2.9 *L mmol/L (3.5-5.1) CRITICAL RESULTS CALLEDCalled to ALEXIA Vuong R.N. 08/29/16 1900Were 2 patient identifiers used? YWas the result read back? Y CHLORIDE 100 mmol/L (98-107) CARBON DIOXIDE 24 mmol/L (21-32) CALCIUM 9.2 mg/dL (8.5-10.1) TOTAL PROTEIN 6.9 g/dL (6.4-8.2) ALBUMIN 4.2 g/dL (3.3-5.0) BILIRUBIN, TOTAL 0.8 mg/dL (0.0-1.0) ALKALINE PHOSPHATASE 110 U/L (46-116) AST (SGOT) 36 U/L (15-37) ALT (SGPT) 22 U/L (12-78) MAGNESIUM 1.9 mg/dL (1.8-2.4) . PROGRESS AND PROCEDURES Course of Care: Patient here in the ER unable to follow commands, she was asleep, lethargic upon arrival, RN completed sternal rub at which point in time patient woke up and arose in bed. In the field she was given Narcan intranasally once, and was felt to have some improvement, however then fell asleep and not following commands again when she would wake up. Her mother was concerned, as she believed this was a panic attack, she has had such in the past thus called 911 . Patient has been largely nonverbal, mumbling at times here in the ER. She has a residential driver's license here, which identifies her. Patient is unable to see anything at this time. She is moving around frantically her extremities, and was placed in restraints due to safety concerns, she was attempting to get out of bed. Head CT completed which does not show any acute bleeding. Labs here and they are her been unremarkable. Urinary drug screen was positive for opiates. She was given Haldol IV 3 mg prior to her CT scan, and after such negative imaging, she was given Narcan 0.4 mg IV, at this time the nurse reports she awoke somewhat from her state arose, stated no, and has since been in her drowsy state, mumbling from time to time, rather incoherent, awake with eyes open, and soft restraints to her bilateral arms, moving her lower extremities frantically. No family has attended to her. Pt appears under influence of substance. Course of care transferred to Dr. Zhang at end of shift. 09:47 08/30/16. I assumed care of the patient at change of shift. Dr. Zhnag reviewed the patient's history and examination findings and results of her studies with me. I subsequently went in and took the patient's history and examined her. She is alert and oriented and lucid. She says that the events yesterday were due to a "panic attack." She says if she does not feel anxious now. She says that she did take Vicodin yesterday for pain in her gums as she is edentulous. She says that this was prescribed for pain. She denies any history of substance abuse. She denies suicidal or homicidal ideation. She says that she feels well and like to go home. With the exception of her left-sided forehead contusion her physical examination was otherwise unremarkable. - MW. 08/29/2016 22:58 BP: 115/79. HR: 93. RR: 18. O2 saturation: 100%. 08/29/2016 22:00 BP: 104/47. HR: 65. RR: 20. O2 saturation: 97%. 08/29/2016 20:53 BP: 119/48. HR: 83. RR: 18. O2 saturation: 96%. Discussed case with hospitalist, (call returned 0130 Dr. Garces. Due to the likely psychiatric nature of this he is unable to admit due to the lack of psychiatric services here.). Patient/family counseled. Old medical records reviewed. Disposition: Discharged. Condition: stable. CLINICAL IMPRESSION Acute transient drug induced (opiates) psychosis. Substance abuse problems: abuse of opiates. Hypokalemia INSTRUCTIONS (Discontinue the use of Vicodin as discussed.). Warnings: Further evaluation is necessary. GENERAL WARNINGS: Return or contact your physician immediately if your condition worsens or changes unexpectedly, if not improving as expected, or if other problems arise. Understanding of the discharge instructions verbalized by patient. Follow-up with: Nela Hernandez, Advanced Registered Nurse Practitioner, , [facility], [address] [place] [address] Follow up in four days. Call for the next available appointment. Follow-up with: [facility], Certified Mental Health Networking Specialist, , , , , Follow up in four days. Call for an appointment. (Electronically signed by Ld Mcclelland MD 08/30/2016 10:09)
--- NOTE | 2016-08-30 10:10 | ED MED RECONCILIATION SUMMARY ---
Patient: MARIETTA MARKHAM Medication Reconciliation Report [facility] VisitID: [id number] [place] [address] 51y, F Registration Date/Time: 08/29/2016 Weight: 54.4 kg Height/Length: 63 in. BMI: 21.3 ALLERGIES: None, Shellfish-derived Products, Tramadol The patient's Home Medications are listed below: Unknown. The source(s) of the original Home Medication information: Not obtained. The following Medications were given to the patient in the Emergency Department: IV NS IV Fluids bolus 0, then 1000 mL/hr, administered: 08/29/2016 6:38:00 PM KCL [IVPB] IVPB bolus 0, then 20 meq 50 mL/hr, administered: 08/29/2016 7:13:00 PM HALDOL [IVP] IVP 3 mg, administered: 08/29/2016 9:54:00 PM Narcan [IVP] IVP 0.4 mg, administered: 08/29/2016 10:46:00 PM Benadryl [IVP] IVP 50 mg, administered: 08/30/2016 7:05:00 AM Potassium Chloride [PO] PO 20 meq, administered: 08/30/2016 9:39:00 AM The following Medications were prescribed to the patient: None.
--- NOTE | 2016-08-30 10:10 | ED DISCHARGE INSTRUCTIONS ---
Patient: MARIETTA MARKHAM General Instructions [facility] VisitID: [id number] [place] [address] 51y, F Registration Date/Time: 08/29/2016 Acute transient drug induced (opiates) psychosis. Substance abuse problems: abuse of opiates. Hypokalemia INSTRUCTIONS (Discontinue the use of Vicodin as discussed.). Warnings: Further evaluation is necessary. GENERAL WARNINGS: Return or contact your physician immediately if your condition worsens or changes unexpectedly, if not improving as expected, or if other problems arise. Understanding of the discharge instructions verbalized by patient. Follow-up with: Nela Hernandez, Advanced Registered Nurse Practitioner, , [facility], [address] [place] [address] Follow up in four days. Call for the next available appointment. Follow-up with: [facility], [facility] Mental Health Regional Operations Director, , , , , Follow up in four days. Call for an appointment. ADDITIONAL INFORMATION Psychosis Psychosis is a mental health problem. It causes a person to be out of touch with reality and affects a persons daily functioning. There are different kinds of psychosis: Drug-induced (due to alcohol, methamphetamine, cocaine, LSD, PCP and others) Bipolar disorder (formerly called Manic-Depression) Depression Schizophrenia Dementia Symptoms of psychosis can include: Hearing voices that others do not hear Seeing things that others do not see Racing thoughts Lack of energy Feeling extremely fearful Treatment for psychosis depends on the cause. Medicine, with or without psychotherapy, is often used. Home Care: Be sure to take your medicine as directed even if you think you don't need it. Talk with your family about your feelings and thoughts. Follow Up with your counselor, therapist or psychiatrist as advised by our staff. To learn more about this illness and available resources, contact your local mental health organization. National [place] on Mental Illness: www.pankaj.org Get Prompt Medical Attention if any of the following occur: Feeling like you want to harm yourself or another Feeling extremely depressed Feeling out of control or being controlled by others Unable to care for yourself Hypokalemia Hypokalemia means a low level of potassium in the blood. This most often occurs in patients who take diuretics (water pills). It can also occur due to severe vomiting or diarrhea. A mild case usually causes no symptoms. It is only found with blood testing. More severe potassium loss causes generalized weakness, muscle or abdominal cramping, heart palpitations (rapid or irregular heartbeats) and low blood pressure. Home Care: 1) Take any potassium supplements prescribed. 2) Eat foods rich in potassium. The highest amount is found in artichoke, baked potatoes, spinach, cantaloupe, honeydew melon, cod, halibut, salmon, and scallops. White, red, or hatch beans are also very good sources. A modest amount is found in orange juice, bananas, carrots, and tomato juice. 3) Certain types of diuretics (water pills), such as Lasix (furosemide), require that you take potassium supplements for as long as you take the diuretic pills. If you are taking a diuretic, discuss the need for potassium supplements with your doctor. Follow Up with your doctor for a repeat blood test within the next week or as advised by our staff. Get Prompt Medical Attention if any of the following occur: -- Increased weakness -- Feeling dizzy -- Irregular heartbeat, extra beats or very fast heart rate -- Fainting spell You have been given the following additional information: Psychosis Hypokalemia (Electronically signed by Ld Mcclelland MD 08/30/2016 10:09)
--- NOTE | 2016-08-30 10:10 | ED MAR SUMMARY ---
..... Medication Administration Record [facility] [address] [place] [address] Patient: MARIETTA MARKHAM Visit ID: [id number] 51y, F Weight: 54.4 kg Height/Length: 63 in BMI: 21.2 ALLERGIES: None, Shellfish-derived Products, Tramadol Start 18:38 08/29/2016 Deepthi Valdez R.N., Stop 21:23 08/29/2016 Deepthi Valdez R.N. Medication Administered: IV NS (SALINE), Dose: IV Fluids over 1 hour(s), Rate: 1000 mL/hr, Dispensed: 1000 mL bag, Site: #1 forearm. Medication Ordered: IV NS : initial bolus 1000 mL (1000 mL/hr), then 1000 mL/hr for X1 (NOW); Abhilash. Start 19:13 08/29/2016 Deepthi Valdez R.N., Stop 21:23 08/29/2016 Deepthi Valdez R.N. Medication Administered: KCL [IVPB] (POTASSIUM CHLORIDE), Dose: 20 meq IVPB over 2 hour(s), Rate: 50 mL/hr, Dispensed: 100 mL bag, Site: #1 forearm. Medication Ordered: KCl IV 20 meq/100mL (Run no faster than 10 units/hr). Given 21:54 08/29/2016 Deepthi Valdez R.N. Medication Administered: HALDOL [IVP] (HALOPERIDOL LACTATE), Dose: 3 mg IVP over 1 minute(s), Site: #1 forearm. Medication Ordered: Haldol IV 3 mg (HIGH ALERT MEDICATION, NOW). Given 22:46 08/29/2016 Hieu Singer R.N. Medication Administered: NARCAN [IVP] (NALOXONE HCL), Dose: 0.4 mg IVP over 1 minute(s), Site: #1 forearm. Medication Ordered: Narcan IV 0.4 mg (HIGH ALERT MEDICATION, NOW). Given 07:05 08/30/2016 Tashia Mendoza, Medication Administered: BENADRYL [IVP] (DIPHENHYDRAMINE HCL), Dose: 50 mg IVP over 2 minute(s), Site: #1 forearm. Medication Ordered: Benadryl IV 50 mg (NOW). Given 09:39 08/30/2016 Yair Vick R.N. Medication Administered: POTASSIUM CHLORIDE [PO] (POTASSIUM CHLORIDE ER), Dose: 20 meq PO. Medication Ordered: Potassium Chloride PO 20 meq (NOW).
--- NOTE | 2016-08-30 10:10 | ED DISCHARGE INSTRUCTIONS ---
Patient: MARIETTA MARKHAM General Instructions [facility] VisitID: [id number] [place] [address] 51y, F Registration Date/Time: 08/29/2016 Acute transient drug induced (opiates) psychosis. Substance abuse problems: abuse of opiates. Hypokalemia INSTRUCTIONS (Discontinue the use of Vicodin as discussed.). Warnings: Further evaluation is necessary. GENERAL WARNINGS: Return or contact your physician immediately if your condition worsens or changes unexpectedly, if not improving as expected, or if other problems arise. Understanding of the discharge instructions verbalized by patient. Follow-up with: Nela Hernandez, Advanced Registered Nurse Practitioner, , [facility], [address] [place] [address] Follow up in four days. Call for the next available appointment. Follow-up with: [facility], [facility] Mental Health Fourdrinier Operator, , , , , Follow up in four days. Call for an appointment. ADDITIONAL INFORMATION Psychosis Psychosis is a mental health problem. It causes a person to be out of touch with reality and affects a persons daily functioning. There are different kinds of psychosis: Drug-induced (due to alcohol, methamphetamine, cocaine, LSD, PCP and others) Bipolar disorder (formerly called Manic-Depression) Depression Schizophrenia Dementia Symptoms of psychosis can include: Hearing voices that others do not hear Seeing things that others do not see Racing thoughts Lack of energy Feeling extremely fearful Treatment for psychosis depends on the cause. Medicine, with or without psychotherapy, is often used. Home Care: Be sure to take your medicine as directed even if you think you don't need it. Talk with your family about your feelings and thoughts. Follow Up with your counselor, therapist or psychiatrist as advised by our staff. To learn more about this illness and available resources, contact your local mental health organization. National [place] on Mental Illness: www.pankaj.org Get Prompt Medical Attention if any of the following occur: Feeling like you want to harm yourself or another Feeling extremely depressed Feeling out of control or being controlled by others Unable to care for yourself Hypokalemia Hypokalemia means a low level of potassium in the blood. This most often occurs in patients who take diuretics (water pills). It can also occur due to severe vomiting or diarrhea. A mild case usually causes no symptoms. It is only found with blood testing. More severe potassium loss causes generalized weakness, muscle or abdominal cramping, heart palpitations (rapid or irregular heartbeats) and low blood pressure. Home Care: 1) Take any potassium supplements prescribed. 2) Eat foods rich in potassium. The highest amount is found in artichoke, baked potatoes, spinach, cantaloupe, honeydew melon, cod, halibut, salmon, and scallops. White, red, or hatch beans are also very good sources. A modest amount is found in orange juice, bananas, carrots, and tomato juice. 3) Certain types of diuretics (water pills), such as Lasix (furosemide), require that you take potassium supplements for as long as you take the diuretic pills. If you are taking a diuretic, discuss the need for potassium supplements with your doctor. Follow Up with your doctor for a repeat blood test within the next week or as advised by our staff. Get Prompt Medical Attention if any of the following occur: -- Increased weakness -- Feeling dizzy -- Irregular heartbeat, extra beats or very fast heart rate -- Fainting spell You have been given the following additional information: Psychosis Hypokalemia (Electronically signed by Ld Mcclelland MD 08/30/2016 10:09)
--- NOTE | 2016-08-30 10:10 | ED MAR SUMMARY ---
..... Medication Administration Record [facility] [address] [place] [address] Patient: MARIETTA MARKHAM Visit ID: [id number] 51y, F Weight: 54.4 kg Height/Length: 63 in BMI: 21.2 ALLERGIES: None, Shellfish-derived Products, Tramadol Start 18:38 08/29/2016 Deepthi Valdez R.N., Stop 21:23 08/29/2016 Deepthi Valdez R.N. Medication Administered: IV NS (SALINE), Dose: IV Fluids over 1 hour(s), Rate: 1000 mL/hr, Dispensed: 1000 mL bag, Site: #1 forearm. Medication Ordered: IV NS : initial bolus 1000 mL (1000 mL/hr), then 1000 mL/hr for X1 (NOW); Abhilash. Start 19:13 08/29/2016 Deepthi Valdez R.N., Stop 21:23 08/29/2016 Deepthi Valdez R.N. Medication Administered: KCL [IVPB] (POTASSIUM CHLORIDE), Dose: 20 meq IVPB over 2 hour(s), Rate: 50 mL/hr, Dispensed: 100 mL bag, Site: #1 forearm. Medication Ordered: KCl IV 20 meq/100mL (Run no faster than 10 units/hr). Given 21:54 08/29/2016 Deepthi Valdez R.N. Medication Administered: HALDOL [IVP] (HALOPERIDOL LACTATE), Dose: 3 mg IVP over 1 minute(s), Site: #1 forearm. Medication Ordered: Haldol IV 3 mg (HIGH ALERT MEDICATION, NOW). Given 22:46 08/29/2016 Hieu Singer R.N. Medication Administered: NARCAN [IVP] (NALOXONE HCL), Dose: 0.4 mg IVP over 1 minute(s), Site: #1 forearm. Medication Ordered: Narcan IV 0.4 mg (HIGH ALERT MEDICATION, NOW). Given 07:05 08/30/2016 Tashia Mendoza, Medication Administered: BENADRYL [IVP] (DIPHENHYDRAMINE HCL), Dose: 50 mg IVP over 2 minute(s), Site: #1 forearm. Medication Ordered: Benadryl IV 50 mg (NOW). Given 09:39 08/30/2016 Yair Vick R.N. Medication Administered: POTASSIUM CHLORIDE [PO] (POTASSIUM CHLORIDE ER), Dose: 20 meq PO. Medication Ordered: Potassium Chloride PO 20 meq (NOW).
--- NOTE | 2016-08-30 10:10 | ED MED RECONCILIATION SUMMARY ---
Patient: MARIETTA MARKHAM Medication Reconciliation Report [facility] VisitID: [id number] [place] [address] 51y, F Registration Date/Time: 08/29/2016 Weight: 54.4 kg Height/Length: 63 in. BMI: 21.3 ALLERGIES: None, Shellfish-derived Products, Tramadol The patient's Home Medications are listed below: Unknown. The source(s) of the original Home Medication information: Not obtained. The following Medications were given to the patient in the Emergency Department: IV NS IV Fluids bolus 0, then 1000 mL/hr, administered: 08/29/2016 6:38:00 PM KCL [IVPB] IVPB bolus 0, then 20 meq 50 mL/hr, administered: 08/29/2016 7:13:00 PM HALDOL [IVP] IVP 3 mg, administered: 08/29/2016 9:54:00 PM Narcan [IVP] IVP 0.4 mg, administered: 08/29/2016 10:46:00 PM Benadryl [IVP] IVP 50 mg, administered: 08/30/2016 7:05:00 AM Potassium Chloride [PO] PO 20 meq, administered: 08/30/2016 9:39:00 AM The following Medications were prescribed to the patient: None.
== END 2016-08-30 10:05 | disposition home or self-care (01) ==
LOC: ED SRH 17:34
DX: F11.159 Opioid abuse with opioid-induced psychotic disorder, unspecified (principal); E87.6 Hypokalemia; K21.9 Gastro-esophageal reflux disease without esophagitis; Z88.5 Allergy status to narcotic agent; Z91.013 Allergy to seafood
CPT/HCPCS: 81460; 90004; 90047; 90074; 90098; 90100; 91588; 92010; 92235; 92720; 92760; 92761; 92762; 92763; 92764; 92765; 92766; 92767; 93140; 95059; 97000